=== PATIENT | male | born 1980 | race Caucasian/White ===

== ENCOUNTER 2017-01-28 16:51 | Emergency (ER) | payer OTHER ==
[~2017-01-28] VITALS: Ht 188 cm; Wt 67.4 kg
[2017-01-28 16:57] VITALS: BP 107/68
== END 2017-01-28 17:36 | disposition home or self-care (01) ==
LOC: ED 17:30
DX: S61.411D Laceration without foreign body of right hand, subsequent encounter (principal); F17.210 Nicotine dependence, cigarettes, uncomplicated; W45.8XXD Other foreign body or object entering through skin, subsequent encounter
CPT/HCPCS: 99281